=== PATIENT | female | born 1980 | race Caucasian/White ===

== ENCOUNTER 2024-01-22 10:41 | Emergency (ER) | payer BC, MEDICAID, SELFPAY ==
--- NOTE | ~2024-01-22 | XR_ITS ---
Clinical Indication: Chest pain PA and lateral views of the chest: Comparison: None Findings: The lungs are clear, without evidence of focal consolidation or pleural effusion. Cardiome diastinal silhouette is within normal limits. Bones and soft tissues are unremarkable. Impression: Normal chest. Reviewed, dictated and finalized at location . Impression: Normal chest.
--- NOTE | 2024-01-22 10:44 | ECG_ITS ---
Test Date: 2024-01-22 10:46:34 Measurements Intervals Leonard Rate: 68 P: 30 KS: 146 QRS: 33 QRSD: 87 T: 45 QT: 401 QTc: 429 Interpretive Statements SINUS RHYTHM BASELINE ARTIFACT- I, III, AVL, AVF NORMAL ECG No previous ECG available for comparison Electronically Signed On 01-22-2024 16:24:30 CDT by Rick Arango D.O.
[2024-01-22 10:58] VITALS: BP 134/71; PULSE 69; RESP 18; TEMP 36.2; O2SAT 100
[2024-01-22 11:24] VITALS: O2SAT 98
--- NOTE | 2024-01-22 11:27 | PC.NURSE ---
Attempts were made to draw labs by [facility] [employer], and attempts were made for IV placement and lab draw by this RN. Discussed with ultrasound trained RN to get iv access that way.
[2024-01-22 11:45] LABS: Basophils Percent Auto 0.6 % (0.2-1.2); Eosinophils Absolute Auto 0.2 K/mm3 (0-0.3); Hematocrit 39.1 % (37.0-47.0); Hemoglobin 13.2 g/dL (12.0-15.0); Immature Granulocyte Absolute 0.01 K/mm3 (0.00-0.031); Immature Granulocyte Percent A 0.3 % (0-0.5); Lymphocytes Absolute Auto 0.55 K/mm3 (0.9-3.2); Lymphocytes Percent Auto 17.1 % (18.3-44.2); Mean Corpuscular HGB Conc 33.8 g/dl (32-36); Mean Corpuscular Hemoglobin 29.5 pg (26-34); Mean Corpuscular Volume 87.3 fl (80-100); Mean Platelet Volume 9.3 fl (7.4-10.4); Monocytes Absolute Auto 0.4 K/mm3 (0.1-0.6); Monocytes Percent Auto 13.4 % (2.6-8.5); Neutrophils Percent Auto 63.6 % (45.5-73.1); Platelet Count Result 217 k/mm3 (150-375); Red Blood Count 4.48 M/mm3 (4.2-5.4); White Blood Count 3.2 K/mm3 (4.5-10.0)
--- NOTE | 2024-01-22 11:54 | ED.CHESTPAIN ---
HPI - Chest Pain General Chief Complaint: Chest Pain Stated Complaint: chest pain Time Seen by Provider: 01/22/24 11:51 Source: patient Mode of arrival: ambulatory Limitations: no limitations History of Present Illness HPI narrative: Patient presents with chest pain for a few weeks. She describes it as a burning across her chest laterally/bilaterally. Pain 5/10 in severity. Denies any heartburn/indigestion or inferior/superior nature to pain. She has been fatigued for 2 weeks, sleeping a lot. No cough or fever. No GI symptoms. Appetite ok. Denies feeling shaky or anxious. No vision changes. No rash. No SOB, N/V. No chils/flushing. Denies bone/joint aches. Denies rhinorrhea or tearing. No pruritus. LMP 01/17/24 and it lasted 3 days which is typical. She is concerned that it might be a side effect of her sublicade/suboxone though she has been on this for awhile without incident. She getse montly injections of 300mg, last done on 12/31/23 and next due on 01/30/24. Wonders if it is alternatively wearing off however she states this doesn't feel like opiate withdrawal. PCP is through [facility] ([facility]) and Gary Cota prescribes her MAT. Otherwise no new meds. 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 HEAD: Normocephalic, atraumatic. EYES: Non injected, non icteric. Pupils normal . ENT: Nares clear, no rhinorrhea or epistaxis. No increased lacrimation. NECK: Supple. CHEST: Speaking in full sentences. No respiratory distress.Lungs CTAB. HEART: Regular rate and rhythm. . ABDOMEN: Soft, nondistended. EXTREMITIES: Normal range of motion. No edema. SKIN: Warm, dry, no rash. Particularly, no rash across chest. Skin smooth w/o piloerection. NEURO: No focal deficits. Alert and oriented x3. No tremor with hands outstretched. Not yawning during exam. PSYCH: Normal mood and affect. Does not appear anxious/restless, sitting still during exam. Course Vital Signs Vital signs: Vital Signs Temperature 97.2 F L 01/22/24 10:58 Pulse Rate 69 01/22/24 10:58 Respiratory Rate 18 01/22/24 10:58 Blood Pressure 134/71 01/22/24 10:58 Pulse Oximetry 100 01/22/24 10:58 Oxygen Delivery Room Air 01/22/24 10:58 Temperature 97.9 F 01/22/24 13:10 Pulse Rate 59 L 01/22/24 13:10 Respiratory Rate 17 01/22/24 13:10 Blood Pressure 117/84 01/22/24 13:10 Pulse Oximetry 100 01/22/24 13:10 Oxygen Delivery Room Air 01/22/24 11:24 MDM - Chest Pain MDM Narrative Medical decision making narrative: Patient presents with chest pain described as a burning across her chest as well as fatigue of a few weeks duration. She is concerned it might be related to her medication assisted therapy for former opiate addiction but has been receiving monthly depot shots without any change. In the ED she is afebrile with VS within normal limits. Reassuring physical exam. Patient was found to have a mild hypoglycemia on her labs however she remained alert and oriented. She was given dextrose and Ilia crackers by RN. Repeat glucose was reassessed at approximately 12:30 p.m. and showed 109 mg/dL by report. Leukopenia with no prior for comparison. Mild elevations AST/ALT with no prior for comparison.
[2024-01-22 11:55] LABS: INR 0.9; Prothrombin Time 12.9 Seconds (11.1-14.7)
[2024-01-22 11:56] LABS: Partial Thromboplastin Time 28.8 Seconds (22.3-36.8)
[2024-01-22 12:03] LABS: Alanine Aminotransferase 69 U/L (6-35); Albumin Level 4.8 g/dL (3.5-5.1); Alkaline Phosphatase 63 U/L (38-126); Anion Gap 11 mmol/L (4-12); Aspartate Amino Transferase 54 U/L (14-36); Bilirubin,Total 0.8 mg/dL (0.2-1.3); Blood Urea Nitrogen 14 mg/dL (7-17); Calcium 9.5 mg/dL (8.4-10.2); Carbon Dioxide 27 mmol/L (22-30); Chloride 101 mmol/L (98-107); Estimated CRCL calculation 84 ml/min; Estimated Glomerular Filt Rate > 60; Glucose 57 mg/dL (65-110); Lipase 61 U/L (23-300); Potassium 3.7 mmol/L (3.4-5.0); Sodium 139 mmol/L (137-145)
--- NOTE | 2024-01-22 12:06 | PC.NURSE ---
Patient educated on glucose level, apple juice and crackers provided. will recheck blood sugar in 30 minutes.
[2024-01-22 12:09] LABS: Troponin I < 0.012 ng/mL (0.000-0.034)
[2024-01-22 12:34] LABS: Glucose Point of Care 105 mg/dl (65-105)
--- NOTE | 2024-01-22 12:37 | PC.NURSE ---
Patient takes sublocade and has been taking it for about 16 months
[2024-01-22 13:10] VITALS: BP 117/84; PULSE 59; RESP 17; TEMP 36.6; O2SAT 100
== END 2024-01-22 13:13 | disposition home or self-care (01) ==
PROVIDERS: Emergency Provider Student in an Organized Health Care Education/Training Program
DX: R07.9 Chest pain, unspecified (principal); D72.819 Decreased white blood cell count, unspecified; E16.2 Hypoglycemia, unspecified; R74.01 Elevation of levels of liver transaminase levels
CPT/HCPCS: 36415; 71046; 80053; 82948; 83690; 84484; 85025; 85610; 85730; 93005; 99284